=== PATIENT | male | born 1960 | race African-American/Black ===

== ENCOUNTER 2016-10-02 10:34 | Emergency (ER) | payer OTHER ==
[2016-10-02] MEDS ORDERED: ONDANSETRON 4 MG/2 ML VIAL IVP STA (11:38)
[2016-10-02] MEDS ORDERED: SODIUM CHLORIDE 0.9% 1,000 ML IV ONE (11:38)
--- NOTE | 2016-10-02 11:44 | ED ---
General Adult HPI - General Chief complaint: Nausea/Vomiting/Diarrhea Stated complaint: dizzy,fever Time Seen by Provider: 10/02/16 11:03 Source: patient Mode of arrival: wheelchair Limitations: no limitations - History of Present Illness Initial comments: 56-year-old -[place] male presenting for evaluation of nausea, vomiting , and diarrhea that started this morning. He states that he had some new food from [employer] last night and isn't sure if it was bad. He denies any sick contacts with similar symptoms. He states there is no associated abdominal pain, chest pain, shortness of breath, fevers, chills. He denies hematemesis, melena, and hematochezia. - Related Data Home Medications Medication Instructions Recorded Confirmed Hydrocodone/Acetaminophen 1 tab PO Q6H PRN 10/02/16 10/02/16 [Hydrocodon-Acetaminophn 10-325] Tamsulosin HCl [Tamsulosin HCl] 0.4 mg PO DAILY 10/02/16 10/02/16 Zolpidem Tartrate [Zolpidem 10 mg PO HS 10/02/16 10/02/16 Tartrate] Previous Rx's Medication Instructions Recorded Ondansetron Odt [Zofran Odt] 4 mg PO Q8HR PRN #7 tab 10/02/16 Allergies Allergy/AdvReac Type Severity Reaction Status Date / Time No Known Allergies Allergy Verified 10/02/16 10:53 Review of Systems ROS Statement: Those systems with pertinent positive or pertinent negative responses have been documented in the HPI. ROS Other: All systems not noted in ROS Statement are negative. Constitutional: Reports: weakness. Denies: fever, chills Eyes: Denies: eye pain, eye discharge, vision change ENT: Denies: ear pain, throat pain Respiratory: Denies: cough, dyspnea, wheezes, hemoptysis Cardiovascular: Denies: chest pain, palpitations, orthopnea, syncope Gastrointestinal: Reports: nausea, vomiting, diarrhea. Denies: abdominal pain, constipation, hematemesis, melena, hematochezia Genitourinary: Denies: urgency, dysuria Musculoskeletal: Denies: back pain, myalgia Skin: Denies: rash, lesions Neurological: Denies: headache, weakness Psychiatric: Denies: anxiety, depression Past Medical History Past Medical History: COPD Additional Past Medical History / Comment(s): back pain History of Any Multi-Drug Resistant Organisms: None Reported Past Surgical History: No Surgical Hx Reported Past Psychological History: No Psychological Hx Reported Smoking Status: Current every day smoker Past Alcohol Use History: Occasional Past Drug Use History: None Reported General Exam Limitations: no limitations General appearance: alert, in no apparent distress Head exam: Present: atraumatic, normocephalic Eye exam: Present: normal appearance, PERRL, EOMI Pupils: Present: normal accommodation. Absent: unequal ENT exam: Present: normal exam, normal oropharynx, mucous membranes moist. Absent: mucous membranes dry Neck exam: Present: normal inspection, full ROM. Absent: tenderness, meningismus Respiratory exam: Present: normal lung sounds bilaterally. Absent: respiratory distress, wheezes, rales, rhonchi, stridor Cardiovascular Exam: Present: normal rhythm, tachycardia, normal heart sounds. Absent: regular rate, bradycardia, irregular rhythm GI/Abdominal exam: Present: soft. Absent: distended, tenderness, guarding, rebound, rigid Rectal exam: Present: deferred Extremities exam: Present: normal inspection, full ROM. Absent: tenderness Back exam: Present: normal inspection, full ROM. Absent: tenderness Neurological exam: Present: alert, oriented X3, CN II-XII intact, normal gait. Absent: altered Psychiatric exam: Present: normal affect, normal mood Skin exam: Present: warm, dry, intact Course Vital Signs 10/02/16 10/02/16 10/02/16 10:53 12:30 13:45 Temperature 98.9 F Pulse Rate 121 H 111 H 113 H Respiratory 18 18 20 Rate Blood Pressure 120/78 135/66 134/74 O2 Sat by Pulse 95 95 95 Oximetry 10/02/16 10/02/16 15:30 15:55 Temperature 98.1 F 98.3 F Pulse Rate 110 H 102 H Respiratory 18 18 Rate Blood Pressure 121/57 123/56 O2 Sat by Pulse 95 99 Oximetry EKG Findings - EKG Comments: EKG Findings:: Sinus tachycardia with a ventricular rate of 106, AVELINA 140, QRS 84 , QTC 433. Medical Decision Making - Medical Decision Making 56-year-old -[place] male presenting for evaluation of nausea vomiting and diarrhea that started this morning. He states that he may have had some suspicious food last night but symptoms were is from sleep this morning he denies any sick contacts. On physical examination the patient has no abdominal tenderness and physical exam is benign. Abdomen is soft without peritoneal signs of guarding rigidity or rebound. Labs revealed a markedly leukocytosis and CT abdomen showed possible multifocal colitis. This is likely due to the repeated nausea vomiting diarrhea has been experiencing which is likely viral. The patient was reevaluated and had significant improvement in his symptoms. He was informed of these results and through shared decision making it was decided that he would be discharged with instructions to follow-up with his primary care physician but to return to this facility if his symptoms should worsen or persist. The patient acknowledged an understanding of this information and agreed with this plan of care. - Lab Data Result diagrams: 10/02/16 12:11 10/02/16 12:11 Lab Results 10/02/16 10/02/16 Range/Units 12:11 12:11 WBC 24.1 H (3.8-10.6) k/uL RBC 5.04 (4.30-5.90) m/uL Hgb 15.5 (13.0-17.5) gm/dL Hct 47.4 (39.0-53.0) % MCV 94.1 (80.0-100.0) fL MCH 30.8 (25.0-35.0) pg MCHC 32.7 (31.0-37.0) g/dL RDW 14.1 (11.5-15.5) % Plt Count 317 (150-450) k/uL Neutrophils % 94 % Lymphocytes % 1 % Monocytes % 3 % Eosinophils % 1 % Basophils % 0 % Neutrophils # 22.6 H (1.3-7.7) k/uL Lymphocytes # 0.2 L (1.0-4.8) k/uL Monocytes # 0.8 (0-1.0) k/uL Eosinophils # 0.3 (0-0.7) k/uL Basophils # 0.1 (0-0.2) k/uL Sodium 136 L (137-145) mmol/L Potassium 4.3 (3.5-5.1) mmol/L Chloride 102 (98-107) mmol/L Carbon Dioxide 25 (22-30) mmol/L Anion Gap 9 mmol/L BUN 10 (9-20) mg/dL Creatinine 1.04 (0.66-1.25) mg/dL Est GFR (MDRD) Af Amer >60 (>60 ml/min/1.73 sqM) Est GFR (MDRD) Non-Af >60 (>60 ml/min/1.73 sqM) Glucose 107 H (74-99) mg/dL Calcium 9.2 (8.4-10.2) mg/dL Total Bilirubin 0.8 (0.2-1.3) mg/dL AST 25 (17-59) U/L ALT 26 (21-72) U/L Alkaline Phosphatase 73 (38-126) U/L Total Protein 7.0 (6.3-8.2) g/dL Albumin 4.0 (3.5-5.0) g/dL Lipase 90 (23-300) U/L Disposition Clinical Impression: Nausea and vomiting Disposition: HOME SELF-CARE Condition: Stable Instructions: Acute Nausea and Vomiting (ED), Acute Diarrhea (ED) Additional Instructions: Please use medication as discussed. Please follow up with family doctor if symptoms have not improved over the next two days. Please return to the emergency room if your symptoms increase or worsen or for any other concerns. Prescriptions: Ondansetron Odt [Zofran Odt] 4 mg PO Q8HR PRN #7 tab PRN Reason: Nausea Referrals: None,Stated [Primary Care Provider] - 1-2 days Time of Disposition: 15:10
[2016-10-02 12:37] LABS: Basophils # (A) 0.1 k/uL (0-0.2); Basophils % (A) 0 %; CH 30.8; CHCM 32.9; Eosinophils # (A) 0.3 k/uL (0-0.7); Eosinophils % (A) 1 %; HCT 47.4 % (39.0-53.0); HDW 1.96; HGB 15.5 gm/dL (13.0-17.5); Luc # (Auto) 0.08; Luc % (Auto) 0; Lymphocytes # (A) 0.2 k/uL (1.0-4.8); Lymphocytes % (A) 1 %; MCH 30.8 pg (25.0-35.0); MCHC 32.7 g/dL (31.0-37.0); MCV 94.1 fL (80.0-100.0); Monocytes # (A) 0.8 k/uL (0-1.0); Monocytes % (A) 3 %; Neutrophils # (A) 22.6 k/uL (1.3-7.7); Neutrophils % (A) 94 %; RBC 5.04 m/uL (4.30-5.90); RDW 14.1 % (11.5-15.5); WBC 24.1 k/uL (3.8-10.6); WBC (Perox) 24.24
[2016-10-02 13:00] LABS: ALT 26 U/L (21-72); AST 25 U/L (17-59); Alkaline Phosphatase 73 U/L (38-126); Anion Gap 9 mmol/L; Blood Urea Nitrogen 10 mg/dL (9-20); Calcium 9.2 mg/dL (8.4-10.2); Carbon Dioxide 25 mmol/L (22-30); Chloride 102 mmol/L (98-107); Glucose 107 mg/dL (74-99); Non-African American GFR(MDRD) >60 (>60 ml/min/1.73 sqM); Potassium 4.3 mmol/L (3.5-5.1); Sodium 136 mmol/L (137-145); Total Bilirubin 0.8 mg/dL (0.2-1.3)
[2016-10-02] MEDS ORDERED: RX INFO: IV CONTRAST WAS GIVEN 1 EACH MISC MISCELLANE PRN (13:14)
--- NOTE | 2016-10-02 14:31 | CT ---
EXAMINATION TYPE: CT abdomen pelvis w con DATE OF EXAM: 10/02/2016 2:12 PM COMPARISON: NONE HISTORY: abdominal pain with N/V/D CT DLP: 441.0 mGycm, Automated Exposure Control for Dose Reduction was Utilized. CONTRAST: CT scan of the abdomen and pelvis is performed without oral and with IV Contrast, patient injected wi th 100 mL of Omnipaque 300. FINDINGS: LUNG BASES: There is dependent atelectatic change in both lung bases present. LIVER/GB: No significant abnormality is appreciated. PANCREAS: No significant abnormality is seen. SPLEEN: No significant abnormality is seen. ADRENALS: Nonspecific slight nodular thickening to left adrenal gland is noted. KIDNEYS: No significant abnormality is seen. BOWEL: Evaluation bowel is suboptimal due to lack of enteric contrast. There is no suspicious small o r large bowel dilatation identified. Some scattered air-fluid levels are seen, nonspecific finding. T here is suggestion of fluid-filled cecum with wall thickening, correlate for colitis at this level. T here is moderate wall thickening involving the left: Extending through the sigmoid colon. Correlate f or colitis at this level. PROSTATE/SEMINAL VESICLES: Some central zone calcifications in right aspect of prostate gland are not ed. LYMPH NODES: No greater than 1cm abdominal or pelvic lymph nodes are appreciated. OSSEOUS STRUCTURES: There is disc space narrowing with vacuum disc phenomenon L4-L5 and L5-S1 levels. Spurring and sclerosis L5-S1 level is noted. There is multilevel facet arthropathy in the lower lumb ar spine. OTHER: There is 6 mm calcified nodule in the lower abdominal mesentery and axial image 59, nonspecifi c finding. IMPRESSION: Suboptimal study. No bowel obstruction is present. Possible multifocal colitis, clinical correlation advised, consider infectious or inflammatory etiologies.
[2016-10-02 16:04] VITALS: BP 123/56; PULSE 102; RESP 18; TEMP 98.3
== END 2016-10-02 15:55 | disposition home or self-care (01) ==
LOC: EC 10:34
DX: R11.2 Nausea with vomiting, unspecified (principal); Z79.899 Other long term (current) drug therapy; F17.200 Nicotine dependence, unspecified, uncomplicated
CPT/HCPCS: 36415; 93005; 80053; 83690; 85025; 74177; 99284; 96374; 96361; J2405; Q9967

== ENCOUNTER 2017-09-24 09:10 | Emergency (ER) | payer MEDICARE, OTHER ==
[2017-09-24 09:15] VITALS: BP 137/84; PULSE 74; RESP 20; TEMP 97.9
--- NOTE | 2017-09-24 09:44 | XR ---
EXAMINATION TYPE: XR knee complete LT DATE OF EXAM: 09/24/2017 COMPARISON: NONE HISTORY: Pain TECHNIQUE: Four views are submitted. FINDINGS: Arthritic change involving the medial compartment of the knee joint and patellofemoral joint with hyp ertrophic changes. Large suprapatellar joint effusion.. Osseous structures are intact. No acute fra cture seen. IMPRESSION: 1. No acute fracture or dislocation. There is a large suprapatellar joint effusion. If there is conc chidi for internal derangement correlate with MRI. 2. Osteoarthritis
--- NOTE | 2017-09-24 10:15 | ED ---
General Adult HPI - General Chief complaint: Extremity Injury, Lower Stated complaint: left leg pain from fall Time Seen by Provider: 09/24/17 09:22 Source: patient, RN notes reviewed Mode of arrival: ambulatory Limitations: no limitations - History of Present Illness Initial comments: Patient 57-year-old male who presents emergency room today with a chief complaint of left-sided knee pain 2 weeks. He does admit that he slipped on some ice 2 weeks ago. He states his knee did swell up. He states he used ice and elevated swelling to improve. He states he still having pain over the last week is not seem to get any better. He does admit that at times the knee gives out. He also admits that with certain movements feels a sharp pain. Patient denies any other injury or complaint. Patient denies any recent fever, chills, shortness of breath, chest pain, dysuria or hematuria, constipation or diarrhea , headaches or visual changes, or any other complaints. - Related Data Home Medications Medication Instructions Recorded Confirmed Hydrocodone/Acetaminophen 1 tab PO Q6H PRN 10/02/16 09/24/17 [Hydrocodon-Acetaminophn 10-325] Tamsulosin HCl [Tamsulosin HCl] 0.4 mg PO DAILY 10/02/16 09/24/17 Zolpidem Tartrate [Zolpidem 10 mg PO HS 10/02/16 09/24/17 Tartrate] Aspirin 81 mg PO DAILY 09/24/17 09/24/17 Allergies Allergy/AdvReac Type Severity Reaction Status Date / Time Penicillins Allergy Unknown Verified 09/24/17 09:36 Review of Systems ROS Statement: Those systems with pertinent positive or pertinent negative responses have been documented in the HPI. ROS Other: All systems not noted in ROS Statement are negative. Past Medical History Past Medical History: COPD Additional Past Medical History / Comment(s): back pain History of Any Multi-Drug Resistant Organisms: None Reported Past Surgical History: No Surgical Hx Reported Past Psychological History: No Psychological Hx Reported Smoking Status: Current every day smoker Past Alcohol Use History: Occasional Past Drug Use History: None Reported General Exam - General Exam Comments Initial Comments: General: The patient is awake and alert, in no distress, and does not appear acutely ill. Neck: The neck is supple, there is no tenderness or JVD. Cardiovascular: There is a regular rate and rhythm. No murmur, rub or gallop is appreciated. Respiratory: Lungs are clear to auscultation, respirations are non-labored, breath sounds are equal. No wheezes, stridor, rales, or rhonchi. Musculoskeletal: Mild swelling to left knee. Shows good range of motion. Sensation intact pulses equal bilaterally 2+. No tenderness down the left lower leg, ankle or foot. No tenderness to left hip. Neurological: A&O x 3. CN II-XII intact, There are no obvious motor or sensory deficits. Coordination appears grossly intact. Speech is normal. Skin: Skin is warm and dry and no rashes or lesions are noted. Psychiatric: Normal mood and affect. Limitations: no limitations Course Vital Signs 09/24/17 09:14 Temperature 97.9 F Pulse Rate 74 Respiratory 20 Rate Blood Pressure 137/84 O2 Sat by Pulse 97 Oximetry Medical Decision Making - Medical Decision Making Patient's x-ray reviewed and does show a evidence for effusion. No other acute abdomen. Patient does admit to symptoms of the left knee giving out and at times a sharp pain with certain movements. Advised patient to follow up with orthopedics for further evaluation and possible MRI. Advised to continue to ice elevate. Will be given Knee immoblizer here emergency room. Patient states understanding. Disposition Clinical Impression: Knee pain Disposition: HOME SELF-CARE Instructions: Knee Pain (ED) Additional Instructions: Please follow-up with the orthopedic doctor over the next 2 days. Please use knee immobilizer up and moving around. Please return to emergency room if any symptoms increase or worsen or fail concerns. Referrals: Nonstaff,Physician [Primary Care Provider] - 1-2 days Neelima Kamara DO [Doctor of Osteopathic Medicine] - 1-2 days Time of Disposition: 10:15
== END 2017-09-24 10:25 | disposition home or self-care (01) ==
LOC: EC 09:10
DX: M25.562 Pain in left knee (principal); M25.462 Effusion, left knee; F17.200 Nicotine dependence, unspecified, uncomplicated; Z79.82 Long term (current) use of aspirin; Z79.899 Other long term (current) drug therapy; Z88.0 Allergy status to penicillin; W00.0XXA Fall on same level due to ice and snow, initial encounter
CPT/HCPCS: 73562; 99283; L1830 ×2

== ENCOUNTER 2018-06-30 23:25 | Emergency (ER) | payer MEDICARE, OTHER ==
[2018-06-30 23:32] VITALS: TEMP 97.7
--- NOTE | 2018-06-30 23:49 | ED ---
Abdominal Pain HPI - General Chief Complaint: Abdominal Pain Stated Complaint: Abdominal Pain Time Seen by Provider: 06/30/18 23:48 Source: patient Mode of arrival: ambulatory Limitations: no limitations - History of Present Illness Initial Comments: Nilesh is a pleasant 58-year-old -[place] gentleman who presents the emergency department today for evaluation of crampy abdominal pain and constipation. Patient reports that he is on chronic narcotics due to chronic pain, he takes 10 mg Percocet multiple times daily. Patient reports he suffered with constipation in the past. Patient reports he hasn't had a bowel movement in 5 days, today he went to the drugstore and bought MiraLAX he took a single dose around 5 PM today and has developed some crampy abdominal pain since that time but has not had a bowel movement. Patient reports he came to the ER today because he thinks he needs an enema. - Related Data Home Medications Medication Instructions Recorded Confirmed Aspirin 81 mg PO DAILY 09/24/17 06/30/18 Albuterol Inhaler [Ventolin Hfa 2 puff INHALATION RT-Q6H PRN 06/30/18 06/30/18 Inhaler] Tiotropium [place] [Spiriva] 1 cap INHALATION RT-DAILY 06/30/18 06/30/18 oxyCODONE-APAP 10-325MG [Percocet 1 tab PO Q8HR PRN 06/30/18 06/30/18 10-325 mg] Allergies Allergy/AdvReac Type Severity Reaction Status Date / Time Penicillins Allergy Unknown Verified 06/30/18 23:37 ibuprofen [From Motrin] AdvReac Vomiting Verified 06/30/18 23:37 Review of Systems ROS Statement: Those systems with pertinent positive or pertinent negative responses have been documented in the HPI. ROS Other: All systems not noted in ROS Statement are negative. Past Medical History Past Medical History: COPD Additional Past Medical History / Comment(s): back pain, Adrenal mass History of Any Multi-Drug Resistant Organisms: None Reported Past Surgical History: No Surgical Hx Reported Past Psychological History: No Psychological Hx Reported Smoking Status: Current every day smoker Past Alcohol Use History: Occasional Past Drug Use History: None Reported General Exam - General Exam Comments Initial Comments: Physical Exam GENERAL: Patient is well-developed and well-nourished. Patient is nontoxic and well-hydrated and is in no distress. HENT: Normocephalic, Atraumatic. EYES: PERRL, EOMI PULMONARY: Unlabored respirations. No audible rales rhonchi or wheezing was noted. CARDIOVASCULAR: There is a regular rate and rhythm without any murmurs gallops or rubs. ABDOMEN: Soft and nontender with normal bowel sounds. SKIN: Skin is dry Left thumb nail broken with well healing blood under nail Finger nails clubbed : Deferred NEUROLOGIC: Patient is alert and oriented x3. Moving all extremities spontaneously MUSCULOSKELETAL: Normal extremities with adequate strength and full range of motion. No lower extremity swelling or edema. No calf tenderness. PSYCHIATRIC: Normal psychiatric evaluation. Limitations: no limitations Limitations: no limitations Course Vital Signs 06/30/18 06/30/18 23:26 23:45 Temperature 97.7 F Pulse Rate 98 84 Respiratory 16 18 Rate Blood Pressure 153/101 153/107 O2 Sat by Pulse 100 99 Oximetry Medical Decision Making - Medical Decision Making The patient was seen and evaluated, history was obtained from the patient Patient requesting an enema, patient did not try an enema at home. Patient states he came to the emergency department for a nurse to do his enema. Patient has no physical disability that would prevent him from doing his own enema. At this time Dulcolax suppository, Magnesium citrate and lactulose ordered - I advised the patient this plan, patient has 20 suppository was as he was not familiar with this. Patient agreeable to trying this treatment plan. Patient took lactulose but refused suppository or magnesium citrate - he reported to the nurse that he took both of these earlier in the day despite having told me he didn't notice suppository was earlier in my exam. Patient ambulated to the restroom, reports she still not having bowel movements again requesting an enema. Patient was again advised that the treatment plan is for a suppository before trying an enema. Patient then walked out of the emergency department without being discharged. Disposition Clinical Impression: Abdominal pain, Narcotic bowel syndrome Disposition: Left Against Medical Advice Condition: Good Is patient prescribed a controlled substance at d/c from ED?: No Referrals: None,Stated [REFERRING] - 1-2 days
[2018-06-30] MEDS ORDERED: LACTULOSE 20 GM/30 ML CUP PO ONE (23:56)
[2018-06-30] MEDS ORDERED: MAGNESIUM CITRATE 296 ML BOTTLE PO ONE (23:56)
[2018-06-30] MEDS ORDERED: BISACODYL 10 MG SUPP RECTAL STA (23:56)
[2018-07-01 00:53] VITALS: BP 153/107; PULSE 84; RESP 18
== END 2018-07-01 01:16 | disposition left against medical advice (07) ==
LOC: EC 23:25
DX: R10.9 Unspecified abdominal pain (principal); T40.605A Adverse effect of unspecified narcotics, initial encounter; J44.9 Chronic obstructive pulmonary disease, unspecified; F17.200 Nicotine dependence, unspecified, uncomplicated; Z79.82 Long term (current) use of aspirin; Z79.899 Other long term (current) drug therapy; Z88.0 Allergy status to penicillin; Z88.6 Allergy status to analgesic agent; Z53.29 Procedure and treatment not carried out because of patient's decision for other reasons
CPT/HCPCS: 99283

== ENCOUNTER → 2018-09-08 | Outpatient (CLI) | payer MEDICARE, OTHER ==
--- NOTE | 2018-09-09 03:43 | MR ---
EXAMINATION TYPE: MR brain wo/w con DATE OF EXAM: 09/08/2018 COMPARISON: NONE HISTORY: 58-year-old male Lung cancer / Headaches/ Dizziness TECHNIQUE: Multiplanar, multisequence images of the brain and brainstem were acquired before and aft er administration of 5.5 mL IV Gadavist. Diffusion weighted imaging is performed. FINDINGS: 6 foci of enhancement (up to 9) are present, primarily seen at the flowers-white matter junction but a c ouple more cortically based foci are also demonstrated. Posterior temporal lobe ring-enhancing lesion, axial image 11 measuring 7 mm. Lateral left cerebral hemisphere measuring 9 mm, axial image 10. Right paramedian posterior right cerebellum measuring 7 mm, axial image 9. Possible dural based 4 mm focus anterior left frontal lobe, axial image 16. 5 mm medial right frontal lobe axial image 18. Possible 4 mm dural based focus superior right paramedian posterior frontal lobe, axial image 25. The thin slice axial postcontrast sequence suggests a few additional punctate meningeal foci: -left frontal lobe axial image 65, -posterior left temporal lobe, axial image 52, left temporoparietal junction, axial image 49, -left parietal lobe axial image 53. T2/FLAIR weighted sequences show no significant associated vasogenic edema. Mild scattered T2 bright white matter changes present in the subcortical bifrontal lobes primarily. Findings could relate to c hanges of chronic small vessel ischemic disease or chronic migraines. No evidence for acute infarction, mass effect, midline shift, herniation, effacement of basal cistern s, or extra-axial fluid collection. The ventricles and sulci are age-appropriate. Major intracranial flow voids are intact. The right vertebral artery flow-void is nondominant. Midline structures demonstrate normal morphology. The craniocervical junction is normal. Dural venous sinuses are patent. Leftward nasal septal deviation. Globes appear intact. Mild mucosal thickening ethmoid air cells. IMPRESSION: Approximately 9 scattered enhancing foci measuring up to 8 mm in the bilateral cerebral hemispheres a nd also in the cerebellum. Findings compatible with brain metastases given patient's history. No sign ificant vasogenic edema, mass effect, or acute infarct.
== END | disposition home or self-care (01) ==
LOC: RADMRIMAIN 14:16
PROVIDERS: ATTEND Internal Medicine Hematology & Oncology
DX: R94.02 Abnormal brain scan (principal); C34.11 Malignant neoplasm of upper lobe, right bronchus or lung
CPT/HCPCS: 70553; A9585